=== PATIENT | male | born 1935 | race Caucasian/White ===

== ENCOUNTER → 2018-08-30 | Outpatient (CLI) | payer MEDICARE, BC ==
[~2018-08-30] MED LIST: ADVAIR 500-501 EACH INH; ALBUTEROL2.5 MG/31; FLUZONE 2045 MCG/011; HYDROCODON-ACE1 EAC7; NOHOMEMEDICATIONS; PNEUMOVAX25 MCG/0.5; SKELAXIN 800 M800 M1 PO
== END ==
LOC: M.RAD 12:21
DX: J18.9 Pneumonia, unspecified organism (principal); Z87.09 Personal history of other diseases of the respiratory system